=== PATIENT | female | born 1955 | race Caucasian/White ===

== ENCOUNTER → 2017-07-16 | Outpatient (CLI) | payer OTHER ==
[~2017-07-16] MED LIST: TYL2 PO
== END ==
LOC: RAH 09:48
PROVIDERS: ATTEND Family Medicine
DX: Z12.31 Encounter for screening mammogram for malignant neoplasm of breast (principal)
CPT/HCPCS: 77067

== ENCOUNTER → 2018-12-18 | Outpatient (CLI) | payer OTHER | END | disposition home or self-care (01) | LOC: RAH 11:04 | PROVIDERS: ATTEND Family Medicine | DX: Z12.31 Encounter for screening mammogram for malignant neoplasm of breast (principal) | CPT/HCPCS: 77067 ==

== ENCOUNTER 2020-04-03 21:11 | Emergency (ER) | payer OTHER ==
[2020-04-03] MEDS ORDERED: KETOROLAC TROMETHAMINE 60 MG/2 ML VIAL ONE (21:21)
[2020-04-03] MEDS ORDERED: HYDROCODONE/ACETAMINOPHEN 10/325 MG TAB ONE (21:22)
[2020-04-03] MEDS ORDERED: CYCLOBENZAPRINE HCL 10 MG TABLET ONE (21:22)
[2020-04-03] MEDS ORDERED: FENTANYL CITRATE PF 50 MCG/1 ML 2ML VIAL ONE (22:18)
== END 2020-04-03 22:55 | disposition home or self-care (01) ==
LOC: EDH 21:11
DX: M54.41 Lumbago with sciatica, right side (principal); Z90.710 Acquired absence of both cervix and uterus
CPT/HCPCS: 72100; 96372; 96374; 99284; J1885; J3010

== ENCOUNTER → 2021-06-29 | Outpatient (CLI) | payer OTHER ==
[~2021-06-29] MED LIST changes: +ALBUHFA IH; +APIX5TAB PO; +ATOR10 PO; +BUSP10TA3 PO; +DEXA2TAB PO; +ESCI20TA38 PO; +INHA1EAC51 MC; +INSU3INS3 SQ; +MELO-108 PO; +METF-444 PO; +PEN1DIS.48 MC
== END | disposition home or self-care (01) ==
LOC: RAH 13:27
PROVIDERS: ATTEND Family Medicine
DX: Z12.31 Encounter for screening mammogram for malignant neoplasm of breast (principal)
CPT/HCPCS: 77067

== ENCOUNTER → 2024-10-30 | Outpatient (CLI) | payer MEDICARE | END | disposition home or self-care (01) | LOC: RAH 11:15 | PROVIDERS: ATTEND Family Medicine | DX: Z12.31 Encounter for screening mammogram for malignant neoplasm of breast (principal) | CPT/HCPCS: 77067 ==

== ENCOUNTER → 2024-11-19 | Outpatient (CLI) | payer MEDICARE ==
--- NOTE | 2024-11-20 13:24 | HMCIMG ---
Left BREAST ULTRASOUND: Follow-up mammogram from 10/30/2024 Finding: Real-time examination of the [right/left] breast demonstrates mildly heterogeneous echotexture throughout the breast without evidence of focal solid mass. There is a cyst irregularly-shaped in the left breast at 3:00 measuring 0.5 x 0.3 x 0.5 cm. This to benign-appearing left axillary lymph node measuring 1.7 x 0.8 x 1.4 cm. The second axillary lymph node measuring 1.2 x 0.4 x 0.9 cm.. IMPRESSION: No solid mass identified Small cyst in left breast at 3:00 I would recommend annual mammography with tomography with follow-up breast sonogram CATEGORY 2: BENIGN FINDINGS Recommend monthly self breast exam as well as annual clinical examination. A negative x-ray should not delay biopsy if a dominant or clinically suspicious mass is present, since 8-10% of cancers are not identified by mammography. Dense breasts particularly, may obscure an underlying neoplasm. Some of these may be detected clinically and therefore, clinical examination is an essential part of breast evaluation. .
== END | disposition home or self-care (01) ==
LOC: RAH 13:40
PROVIDERS: ATTEND Family Medicine
DX: N60.02 Solitary cyst of left breast (principal); R92.2 Inconclusive mammogram; R92.332 Mammographic heterogeneous density, left breast
CPT/HCPCS: 76641